=== PATIENT | male | born 1955 ===

== ENCOUNTER 2019-07-17 20:28 | Emergency (ER) | payer OTHER, SELFPAY ==
[~2019-07-17] VITALS: Ht 165.1 cm; Wt 100.0 kg
[~2019-07-17 20:28] MED LIST: ASPI-1265 PO; ATOR20TA66 PO; CLE150C PO; GLIM1TAB3 PO; LOSA25TA96 PO; METF500T PO; NICO-687 TD
--- NOTE | 2019-07-17 22:33 | NUR ---
THE PATIENT IS NOT IN HIS ROOM AND HAS NOT BEEN FOR A BIT. HIS WALLET IS IN THE ROOM. NOW A MAN CAME TO GET HIS WALLET. INFORMED HIM TO GET PATIENT BACK IN HERE, I BELIEVE HE HAS AN IV IN.
--- NOTE | 2019-07-17 22:39 | NUR ---
HE IS BACK IN THE ROOM. HIS IV WAS LAYING ON THE COUNTER. HE IS MAD THAT I HAD HIM COME BACK FROM THE REGISTRATION WINDOW. DR SANCHEZ IN TO SEE HIM. CLEANED UP HIS IV SITE. HE HAS A HEMATOMA THERE FROM WHEN HE PULLED IT OUT.
[2019-07-17] MEDS ORDERED: insulin regular, human 10 units/0.1 ml syringe SQ ONE (22:40)
--- NOTE | 2019-07-17 22:46 | NUR ---
I PUT GRIPPER SLIPPERS ON HIS FEEL BECAUSE HE DOESNT HAVE SHOES OR SOCKS
[2019-07-17 22:53] VITALS: BP 144/93
--- NOTE | 2019-07-17 22:57 | NUR ---
PT BLOOD GLUCOSE 260, PT REFUSED MD ORDERED 10 UNITS INSULIN STATING IT WOULD MAKE HIS BLOOD SUGAR DROPPED TOO LOW. PT STATED HE WOULD TAKE HIS REGULAR METFORMIN DOSE WHEN HE GETS HOME.
== END 2019-07-17 23:04 | disposition home or self-care (01) ==
LOC: ER 20:29
DX: S80.01XA Contusion of right knee, initial encounter (principal); S50.02XA Contusion of left elbow, initial encounter; E11.65 Type 2 diabetes mellitus with hyperglycemia; R47.81 Slurred speech; E78.00 Pure hypercholesterolemia, unspecified; I10 Essential (primary) hypertension; Z79.82 Long term (current) use of aspirin; X58.XXXA Exposure to other specified factors, initial encounter; Z79.899 Other long term (current) drug therapy; Y93.89 Activity, other specified; Y92.89 Other specified places as the place of occurrence of the external cause; Y99.9 Unspecified external cause status
CPT/HCPCS: 82948; 99284; J1815